=== PATIENT | female | born 1955 | race Caucasian/White ===

== ENCOUNTER 2017-08-10 12:39 | Emergency (ER) | payer BC ==
[2017-08-10 13:06] VITALS: BP 154/103
--- NOTE | 2017-08-10 13:42 | UC ---
FLU HPI - HPI Summary HPI Summary: Pt c/o generalized fatigue, malaise, cough, nasal congestion X 2 weeks. Pt was diagnosed with sinusitis and otitis media last week and began amox Po Q12h and stopped taking the amox after 5 days due to loose stools c/o . Pt states she no longer has diarrhea and feels a little better but continues to have generalized malaise. Pt states she is a diabetic and has not been eating. - History of Current Complaint Stated Complaint: SINUS/FLU SYMPTOMS Time Seen by Provider: 08/10/17 12:52 Hx Obtained From: Patient ?: No Onset/Duration: Gradual Onset, Lasting Weeks, Still Present Severity Currently: Mild Severity Initially: Moderate Pain Intensity: 3 Associated Signs & Symptoms: Positive: Myalgia, Cough, Nasal Congestion Related Hx: Possible Flu/Infectious Exposure - Risk Factors Influenza Risk Factors: Negative - Allergy/Home Medications Allergies/Adverse Reactions: Allergies Allergy/AdvReac Type Severity Reaction Status Date / Time moxifloxacin [From Avelox] Allergy Anaphylatic Verified 08/10/17 12:53 Shock shellfish derived Allergy Unknown Verified 08/10/17 12:53 Reaction Details Sulfa (Sulfonamide Allergy Anaphylatic Verified 08/10/17 12:53 Antibiotics) Shock PMH/Surg Hx/FS Hx/Imm Hx Previously Healthy: Yes Cardiovascular History: Hypertension - Surgical History Surgical History: None Surgery Procedure, Year, and Place: gallbladder, 37 yrs ago c section, 37 yrs ago appendectomy, 37 yrs ago , [place], 20 [place] [facility] [place] [facility] [place] , 30 yrs ago , [place] [facility] [place] [place] [facility] [place]. detatched retina emelyn 2016, [place] LEFT ROTATOR CUFF - Family History Known Family History: Positive: Diabetes - Social History Occupation: Employed Full-time Lives: With Family Alcohol Use: None Substance Use Type: None Smoking Status (MU): Never Smoked Tobacco Review of Systems Constitutional: Fatigue Skin: Negative Eyes: Negative ENT: Sinus Congestion Respiratory: Shortness Of Breath - with exertion, Cough Cardiovascular: Negative Gastrointestinal: Negative Genitourinary: Negative Motor: Negative Neurovascular: Negative Musculoskeletal: Myalgia Neurological: Negative Psychological: Negative Is Patient Immunocompromised?: No All Other Systems Reviewed And Are Negative: Yes Physical Exam Triage Information Reviewed: Yes Appearance: Ill-Appearing Vital Signs: Initial Vital Signs Temp 96.7 F 08/10/17 12:53 Pulse 83 08/10/17 12:53 Resp 18 08/10/17 12:53 BP 154/103 08/10/17 12:53 Pulse Ox 99 08/10/17 12:53 Vital Signs Reviewed: Yes Eye Exam: Normal ENT Exam: Other ENT: Positive: Nasal congestion Dental Exam: Normal Neck exam: Normal Respiratory Exam: Normal Cardiovascular Exam: Normal Musculoskeletal Exam: Normal Neurological Exam: Normal Psychological Exam: Normal Skin Exam: Normal Flu Course/Dx - Differential Dx/Diagnosis Differential Diagnosis/HQI/PQRI: Bronchitis, Influenza, Upper Respiratory Infection Provider Diagnoses: Bronchitis Discharge - Discharge Plan Condition: Stable Disposition: HOME Prescriptions: Azithromycin TAB* [Zithromax TAB (Z-ANALISA) 250 mg #6 tabs] 2 tab PO .TODAY, THEN 1 DAILY #1 analisa Patient Education Materials: Acute Bronchitis (ED) Referrals: Wilbur Ricci MD [Primary Care Provider] - If Needed Additional Instructions: Please follow up with your PCP or return to clinic as needed. If symptoms do not improve or they worsen, please seek care at the closest Emergency department as soon as possible. It is noted that your blood pressure was elevated at today's visit. Please take your blood pressure medication as directed and follow up with your PCP as needed. If symptoms do not improve, please seek care immediately.
== END 2017-08-10 13:52 | disposition home or self-care (01) ==
LOC: UCCORT 12:39
DX: J40 Bronchitis, not specified as acute or chronic (principal); E11.9 Type 2 diabetes mellitus without complications; Z88.1 Allergy status to other antibiotic agents; Z91.013 Allergy to seafood; I10 Essential (primary) hypertension
CPT/HCPCS: 87502; 99212; G0463

== ENCOUNTER 2018-06-16 08:17 | Emergency (ER) | payer BC ==
[2018-06-16 08:33] VITALS: BP 150/85
--- NOTE | 2018-06-16 08:43 | UC ---
Throat Pain/Nasal Rg HPI - HPI Summary HPI Summary: 62-year-old woman comes to clinic today with chief complaint of runny nose sore throat cough chest congestion going on for 2 weeks. Patient started with these symptoms she improved somewhat in the last couple days things got worse again. It is like things got into her chest for now. No fever today. Over-the- counter medications help with the symptoms some. - History of Current Complaint Chief Complaint: UCRespiratory Stated Complaint: CONGESTION COUGH SORE THROAT EARS Time Seen by Provider: 06/16/18 08:34 Pain Intensity: 0 - Allergies/Home Medications Allergies/Adverse Reactions: Allergies Allergy/AdvReac Type Severity Reaction Status Date / Time moxifloxacin [From Avelox] Allergy Anaphylatic Verified 06/16/18 08:27 Shock shellfish derived Allergy Unknown Verified 06/16/18 08:27 Reaction Details Sulfa (Sulfonamide Allergy Anaphylatic Verified 06/16/18 08:27 Antibiotics) Shock PMH/Surg Hx/FS Hx/Imm Hx Previously Healthy: Yes Endocrine History: Diabetes Cardiovascular History: Hypertension - Surgical History Surgical History: Yes Surgery Procedure, Year, and Place: gallbladder, 37 yrs ago c section, 37 yrs ago appendectomy, 37 yrs ago , hysterectomy, 20 yrs ago , [facility] [place], , [facility] [place] , [place] in both eyes , 30 yrs ago , [place], [facility] [place]. [place] breast[place] [facility] [place], 20 [place]rs ago. detatched retina emelyn 2016, [place] LEFT ROTATOR CUFF - Family History Known Family History: Positive: Diabetes - Social History Alcohol Use: None Substance Use Type: None Smoking Status (MU): Never Smoked Tobacco Review of Systems All Other Systems Reviewed And Are Negative: Yes Constitutional: Positive: Negative Skin: Positive: Negative Eyes: Positive: Drainage ENT: Positive: Sore Throat, Nasal Discharge, Sinus Congestion Respiratory: Positive: Other - CONGESTION Cardiovascular: Positive: Negative Gastrointestinal: Positive: Negative Motor: Positive: Negative Neurovascular: Positive: Negative Musculoskeletal: Positive: Negative Neurological: Positive: Negative Psychological: Positive: Negative Is Patient Immunocompromised?: No Physical Exam Triage Information Reviewed: Yes Appearance: No Pain Distress, Well-Nourished, Ill-Appearing - MILD Vital Signs: Initial Vital Signs Temp 96.3 F 06/16/18 08:30 Pulse 73 06/16/18 08:30 Resp 21 06/16/18 08:30 BP 150/85 06/16/18 08:30 Pulse Ox 98 06/16/18 08:30 Vital Signs Reviewed: Yes Eye Exam: Normal Eyes: Positive: Conjunctiva Clear ENT: Positive: Pharyngeal erythema, Nasal congestion, Nasal drainage, TMs normal Neck exam: Normal Neck: Positive: Supple Respiratory: Positive: Lungs clear, Normal breath sounds, No respiratory distress Cardiovascular: Positive: RRR Musculoskeletal Exam: Normal Musculoskeletal: Positive: Strength Intact, ROM Intact Neurological Exam: Normal Neurological: Positive: Alert, Muscle Tone Normal Psychological Exam: Normal Psychological: Positive: Age Appropriate Behavior Skin Exam: Normal Throat Pain/Nasal Course/Dx - Differential Dx/Diagnosis Provider Diagnosis: Upper respiratory infection Discharge - Sign-Out/Discharge Documenting (check all that apply): Patient Departure All imaging exams completed and their final reports reviewed: No Studies - Discharge Plan Condition: Stable Disposition: HOME Prescriptions: Azithromyxin CASEY (NF) [Z-Casey (Zithromax) 250 mg tabs #6] 2 tab PO .TODAY, THEN 1 DAILY #6 tab Fluconazole 150 MG TAB* [Diflucan 150 MG TAB*] 150 mg PO ED ONCE #2 tablet Patient Education Materials: Upper Respiratory Infection (ED) Referrals: Wilbur Ricci MD [Primary Care Provider] - Additional Instructions: FOLLOW UP WITH YOUR DOCTOR IF NOT COMPLETELY IMPROVED. GET RECHECKED FOR ANY WORSENING OF YOUR CONDITION OR QUESTIONS OR CONCERNS. - Billing Disposition and Condition Condition: STABLE Disposition: Home
== END 2018-06-16 08:55 | disposition home or self-care (01) ==
LOC: UCCORT 08:17
DX: J06.9 Acute upper respiratory infection, unspecified (principal); E11.9 Type 2 diabetes mellitus without complications; I10 Essential (primary) hypertension; Z88.1 Allergy status to other antibiotic agents
CPT/HCPCS: 99212; G0463

== ENCOUNTER 2020-12-10 08:44 | Inpatient (IN) ==
[~2020-12-10 08:44] MED LIST: Buffered Lidocaine 1% SYRIN 1 ml INTRADERM ONE; Lactated Ringers 1000 ml BAG 1,000 ML IV SCH
[2020-12-10] MEDS ORDERED: ceFAZolin 2 GM PREMIX 2 GM/50 ML BAG ONE (09:24)
[2020-12-10] MEDS ORDERED: Midazolam 2 mg/2 ml VIAL 1 mg/ml 2 ml VIAL (2 mg) ONE (10:53)
[2020-12-10] MEDS ORDERED: fentaNYL 100 mcg/2 ml 50 MCG/ML VIAL ONE ×5 (10:54→15:03)
[2020-12-10] MEDS ORDERED: ROPIVACAINE 5 MG/ML 30 ML BTL (0.5%) ONE (10:55)
[2020-12-10] MEDS ORDERED: Bupivacaine 0.5% SDV PF 30ML VIAL ONE (10:56)
[2020-12-10] MEDS ORDERED: Bupivacaine 0.25% SDV 30 ML ONE (10:56)
[2020-12-10] MEDS ORDERED: Lidocaine 2% PF 10 ML AMP ONE (10:57)
[2020-12-10] MEDS ORDERED: Propofol 10 MG/ML 20 ML BTL ONE ×3 (11:48→13:34)
[2020-12-10] MEDS ORDERED: ceFAZolin VIAL VIAL ONE (12:25)
[2020-12-10] MEDS ORDERED: diPHENhydraMINE IV 50 MG/ML 1 ml VIAL (BENADRYL) IV PRN (12:54)
[2020-12-10] MEDS ORDERED: Lactulose 30 ml UDC PO PRN (12:54)
[2020-12-10] MEDS ORDERED: Morphine 2 MG/ML SYRINGE IV PRN (12:54)
[2020-12-10] MEDS ORDERED: diPHENhydraMINE 25 mg TAB PO PRN (12:54)
[2020-12-10] MEDS ORDERED: Ondansetron ODT 4 mg TAB 4 MG TAB PO PRN (12:54)
[2020-12-10] MEDS ORDERED: Ondansetron 4 mg VIAL 2 MG/ML 2 ml VIAL IV PRN (12:54)
[2020-12-10] MEDS ORDERED: Magnesium Hydroxide LIQ 30 ML UDC PO PRN (12:54)
[2020-12-10] MEDS ORDERED: Albuterol HFA INHALER 8 gm MDI INH PRN (12:59)
[2020-12-10] MEDS ORDERED: Ondansetron 4 mg VIAL 2 MG/ML 2 ml VIAL ONE (14:17)
[2020-12-10] MEDS: fentaNYL 100 mcg/2 ml 50 MCG/ML VIAL IV PRN ×5 (14:24→15:05)
[2020-12-10] MEDS ORDERED: oxyCODONE/Acetamin 5/325 mg TAB ONE ×2 (14:27→15:47)
[2020-12-10] MEDS: oxyCODONE/Acetamin 5/325 mg TAB PO PRN ×2 (14:28→15:48)
[2020-12-10] MEDS ORDERED: HYDROmorphone 1 MG/1 ML SYRINGE ONE (15:28)
[2020-12-10] MEDS ORDERED: Labetalol IV 5 MG/ML 20 ml VIAL ONE (15:42)
[2020-12-10] MEDS ORDERED: Morphine 4 MG/ML VIAL (1 ml) ONE (16:05)
[2020-12-10] MEDS ORDERED: Dextrose 50% Syringe 50 ml 25 GM/50 ML SYRINGE IV PUSH PRN (16:06)
[2020-12-10] MEDS: ceFAZolin 1 GM ADVAN 1 GM in NS 0.9% 50 ML 50 ML IVPB SCH (21:12)
[2020-12-10] MEDS: Magnesium Hydroxide LIQ 30 ML UDC PO SCH (21:13)
[2020-12-11] MEDS: Lactated Ringers 1000 ml BAG 1,000 ML IV SCH ×2 (04:04→18:29)
[2020-12-11 04:56] LABS: Hematocrit 34 % (35-47); Hemoglobin 11.7 g/dL (12.0-16.0); Mean Platelet Volume 7.7 fL (7.4-10.4); Platelet Count 224 10^3/uL (150-450)
[2020-12-11 05:11] LABS: Calcium 8.4 mg/dL (8.6-10.3); EGFR Non-African American 69.4 (>60); Potassium 4.5 mmol/L (3.5-5.0)
[2020-12-11] MEDS: ceFAZolin 1 GM ADVAN 1 GM in NS 0.9% 50 ML 50 ML IVPB SCH ×2 (05:13→13:01)
[2020-12-11] MEDS: Magnesium Hydroxide LIQ 30 ML UDC PO SCH ×2 (08:11→20:26)
[2020-12-11] MEDS: Vitamin THERAPEUTIC TAB PO SCH (08:11)
[2020-12-11] MEDS ORDERED: Senna TAB 8.6 mg TAB PO SCH (21:00)
[2020-12-12 06:07] LABS: Hematocrit 33 % (35-47); Mean Platelet Volume 7.6 fL (7.4-10.4); Platelet Count 196 10^3/uL (150-450)
[2020-12-12 06:24] LABS: Calcium 8.4 mg/dL (8.6-10.3); EGFR Non-African American 81.8 (>60); Potassium 4.4 mmol/L (3.5-5.0)
[2020-12-12 07:41] VITALS: BP 137/66
[2020-12-12] MEDS: Vitamin THERAPEUTIC TAB PO SCH (07:55)
[2020-12-12] MEDS: Magnesium Hydroxide LIQ 30 ML UDC PO SCH (07:55)
== END 2020-12-12 11:45 | disposition home or self-care (01) | DRG 302 ==
LOC: AA 08:44 → SSU 12:54
PROVIDERS: ADMIT Orthopaedic Surgery Adult Reconstructive Orthopaedic Surgery; ATTEND Orthopaedic Surgery Adult Reconstructive Orthopaedic Surgery